=== PATIENT | female | born 1975 | race Two or more races ===

== ENCOUNTER 2021-06-03 06:00 | Day surgery (SDC) | payer OTHER ==
[~2021-06-03 06:00] MED LIST: CLARITIN10 M1 PO; MAGNESIUM400 MG PO; PRILOSEC OTC20 MG PO
[2021-06-03] MEDS ORDERED: PERCOCET 5-3251 EACH PO (12:04)
== END 2021-06-03 18:45 | disposition home or self-care (01) ==
LOC: CIR.AMB 06:00
PROVIDERS: ATTEND Surgery
DX: K60.3 Anal fistula (principal); K60.1 Chronic anal fissure; K62.4 Stenosis of anus and rectum; Z20.822 Contact with and (suspected) exposure to COVID-19